=== PATIENT | female | born 1995 | race Caucasian/White ===

== ENCOUNTER 2017-10-08 14:42 | Outpatient (CLI) | payer OTHER ==
--- NOTE | 2017-10-08 17:03 | RAD ---
RIGHT FOOT THREE VIEWS: 10/08/17 No fracture or periosteal reaction was seen. All bones currently appear normal. The joints were unrem arkable. IMPRESSION: No significant findings. POS: HOME
== END 2017-10-08 14:43 | disposition home or self-care (01) ==
LOC: BURRAD 14:42
PROVIDERS: ATTEND Family Medicine
DX: M79.671 Pain in right foot (principal)